=== PATIENT | male | born 1945 | race Caucasian/White ===

== ENCOUNTER 2018-12-29 16:17 | Emergency (ER) | payer OTHER ==
[2018-12-29] MEDS ORDERED: NA CHLORIDE 0.9% 1,000 ML ONE (16:55)
--- NOTE | 2018-12-29 17:48 | RAD REPORT ---
EXAM DESCRIPTION: CT - Abdomen Pelvis W Contrast - 12/29/2018 5:16 pm CLINICAL HISTORY: Abdominal pain COMPARISON: 2016 mri TECHNIQUE: Computed axial tomography of the abdomen pelvis was obtained. 100 cc Isovue-300 was admin istered intravenously. Oral contrast was not requested which limits evaluation of bowel. All CT scans are performed using dose optimization technique as appropriate and may include automated exposure control or mA/KV adjustment according to patient size. FINDINGS: Fatty liver. Chronic pneumobilia. Nodular hepatic contour indicative of chronic disease Spleen, left adrenal and kidneys unremarkable. Small right adrenal adenoma Partial pancreatectomy. Pancreas is enlarged and heterogeneous. Moderate stranding within the adjacen t fat. 22 millimeter coarse pancreatic calcification. Dilatation of the pancreatic duct. Partial gastric resection with gastro jejunostomy Short segment thickening of the wall of the descending colon likely secondary to the pancreatic infla mmation Small ventral hernia contains a portion of nondilated bowel IMPRESSION: Patient likely has acute and chronic pancreatitis. 22 millimeter coarse pancreatic calci fication likely the sequela of chronic pancreatitis.
[2018-12-29] MEDS ORDERED: HYDROMORPHONE HCL 1 MG/ML INJ ONE (17:53)
--- NOTE | 2018-12-29 19:36 | EDPHYS ---
Physician Documentation [facility] Name: Dmitri Giordano Age: 73 yrs Sex: Male : 1945 Arrival Date: 12/29/2018 Time: 16:20 Bed 7 Private MD: Derek Crespo B ED Physician Donaldo Snyder HPI: 12/29 20:17 This 73 yrs old Male presents to ER via Ambulatory with complaints of gs Abdominal Pain. 20:17 The patient presents with abdominal pain in the upper abdomen. Onset: The gs symptoms/episode began/occurred 1 week(s) ago. Associated signs and symptoms: Pertinent negatives: nausea and vomiting, fever. Modifying factors: The symptoms are alleviated by nothing, the symptoms are aggravated by food. Severity of pain: At its worst the pain was mild moderate in the emergency department the pain is unchanged. The patient has experienced similar episodes in the past, a few times. Historical: - Allergies: 16:25 No Known Allergies; aj1 - Home Meds: 16:25 Spironolactone Oral [Active]; amlodipine oral [Active]; tamsulosin oral oral [Active]; aj1 Omeprazole Oral [Active]; Calcium Carbonate Oral [Active]; Magnesium Oxide Oral [Active]; - PMHx: 16:25 Hypertension; peptic ulcer; aj1 - PSHx: 16:25 Whipple 10 years ago; aj1 - Immunization history:: Flu vaccine is up to date. - Social history:: Smoking status: Patient/guardian denies using tobacco. - Ebola Screening: : Patient denies travel to an Ebola-affected area in the 21 days before illness onset. ROS: 20:17 All other systems are negative. gs Exam: 17:38 ECG was reviewed by the Attending Physician. gs 20:17 Head/Face: Normocephalic, atraumatic. Eyes: Pupils equal round and reactive to light, gs extra-ocular motions intact. Lids and lashes normal. Conjunctiva and sclera are non-icteric and not injected. Cornea within normal limits. Periorbital areas with no swelling, redness, or edema. ENT: Nares patent. No nasal discharge, no septal abnormalities noted. Tympanic membranes are normal and external auditory canals are clear. Oropharynx with no redness, swelling, or masses, exudates, or evidence of obstruction, uvula midline. Mucous membranes moist. Neck: Trachea midline, no thyromegaly or masses palpated, and no cervical lymphadenopathy. Supple, full range of motion without nuchal rigidity, or vertebral point tenderness. No Meningismus. Chest/axilla: Normal chest wall appearance and motion. Nontender with no deformity. No lesions are appreciated. Cardiovascular: Regular rate and rhythm with a normal S1 and S2. No gallops, murmurs, or rubs. Normal PMI, no JVD. No pulse deficits. Respiratory: Lungs have equal breath sounds bilaterally, clear to auscultation and percussion. No rales, rhonchi or wheezes noted. No increased work of breathing, no retractions or nasal flaring. Back: No spinal tenderness. No costovertebral tenderness. Full range of motion. Skin: Warm, dry with normal turgor. Normal color with no rashes, no lesions, and no evidence of cellulitis. MS/ Extremity: Pulses equal, no cyanosis. Neurovascular intact. Full, normal range of motion. Neuro: Awake and alert, GCS 15, oriented to person, place, time, and situation. Cranial nerves II-XII grossly intact. Motor strength 5/5 in all extremities. Sensory grossly intact. Cerebellar exam normal. Normal gait. 20:17 Constitutional: The patient appears alert, awake. 20:17 Abdomen/GI: Palpation: mild abdominal tenderness, in the right upper quadrant, rebound tenderness, is not appreciated. Vital Signs: 16:25 BP 138 / 86; Pulse 69; Resp 18; Temp 99.1; Pulse Ox 99% on R/A; Weight 72.57 kg (R); aj1 Height 5 ft. 7 in. (170.18 cm) (R); Pain 6/10; 17:40 BP 176 / 86; Pulse 60; Resp 17; Pulse Ox 98% on R/A; tw2 18:29 BP 165 / 98; Pulse 62; Resp 17; Pulse Ox 99% on R/A; tw2 19:26 BP 175 / 82; Pulse 66; Resp 14; Temp 98.8; Pulse Ox 99% on R/A; Pain 5/10; ch 16:25 Body Mass Index 25.06 (72.57 kg, 170.18 cm) aj1 MDM: 16:48 Patient medically screened. gs 20:17 Differential diagnosis: non-specific abd pain, pancreatitis, Peptic Ulcer Disease, gs progression of tumor, hyperglycemia, pancreatic failure, paraneoplastic syndrome. Data reviewed: vital signs, nurses notes. Counseling: I had a detailed discussion with the patient and/or guardian regarding: the historical points, exam findings, and any diagnostic results supporting the discharge/admit diagnosis, the need for outpatient follow up. Physician consultation: Derek Crespo MD. Physician consultation: Gurjit Villalta MD and will see patient in office, in 2-3 days. 12/29 18:51 Order name: Lipase; Complete Time: 19:11 gs 12/29 16:49 Order name: CT Abd/Pelvis - IV Contrast Only; Complete Time: 18:04 gs 12/29 16:49 Order name: EKG; Complete Time: 16:50 gs 12/29 16:49 Order name: EKG - Nurse/Tech; Complete Time: 18:31 gs EC:38 Rate is 64 beats/min. Rhythm is regular. WV interval is normal. QRS interval is gs prolonged. T waves are Flattened. No ST changes noted. Clinical impression: NSR w/ Non-specific ST/T Changes and Abnormal EKG without significant change. Interpreted by me. Administered Medications: 17:00 Drug: NS 0.9% 1000 ml Route: IV; Rate: 1 bolus; Site: left antecubital; tw2 Point of Care Testing: Blood Glucose: 16:25 Blood Glucose: 328 mg/dL; aj1 Ranges: Critical Glucose Levels:Adult <50 mg/dl or >400 mg/dl <40 mg/dl or >180 mg/dl Disposition: 12/29/18 19:35 Discharged to Home. Impression: Upper abdominal pain, unspecified, Hyperglycemia, unspecified. - Condition is Stable. - Discharge Instructions: Abdominal Pain, Adult, Hyperglycemia. - Medication Reconciliation Form, Thank You Letter, Antibiotic Education, Prescription Opioid Use form. - Follow up: Derek Crespo MD; When: 1 - 2 days; Reason: Re-evaluation by your physician. Signatures: Dispatcher [employer] Olivia Barnes RN RN aj1 Cj Aguiar MD MD rn Krenek, Amber, RN RN ak1 Kusum Weber RN RN tw2 Donaldo Snyder MD MD Corrections: (The following items were deleted from the chart) 18:57 16:58 Creatinine for Radiology+C.LAB.BRZ ordered. EDMS EDMS 19:46 19:35 12/29/2018 19:35 Discharged to Home. Impression: Upper abdominal pain, ak1 unspecified; Hyperglycemia, unspecified. Condition is Stable. Forms are Medication Reconciliation Form, Thank You Letter, Antibiotic Education, Prescription Opioid Use. Follow up: Derek Crespo; When: 1 - 2 days; Reason: Re-evaluation by your physician. gs
--- NOTE | 2018-12-29 19:36 | ER ---
Nurse's Notes [facility] Name: Dmitri Giordano Age: 73 yrs Sex: Male : 1945 Arrival Date: 12/29/2018 Time: 16:20 Bed 7 Private MD: Derek Crespo B Diagnosis: Upper abdominal pain, unspecified;Hyperglycemia, unspecified Presentation: 12/29 16:21 Presenting complaint: Patient states: "I've had a pain in my stomach since Friday, so aj1 Dr. Crespo did some blood work this morning and he think one of the possibilities could be that my intestines are twisted so he wanted me to come get a CT scan" Patient reports RUQ and LUQ abdominal pain. Reports that on his labs his blood sugar was over 300, denies history of diabetes. Denies N/V/D. Denies fever. Transition of care: patient was not received from another setting of care. Onset of symptoms was November 2018. Risk Assessment: Do you want to hurt yourself or someone else? Patient reports no desire to harm self or others. Initial Sepsis Screen: Does the patient meet any 2 criteria? No. Patient's initial sepsis screen is negative. Does the patient have a suspected source of infection? No. Patient's initial sepsis screen is negative. Care prior to arrival: None. 16:21 Method Of Arrival: Ambulatory aj 16:21 Acuity: MARICARMEN 3 aj1 Triage Assessment: 16:25 General: Appears in no apparent distress. uncomfortable, Behavior is calm, cooperative, aj1 appropriate for age. Pain: Complains of pain in right upper quadrant and left upper quadrant Pain currently is 6 out of 10 on a pain scale. Neuro: Level of Consciousness is awake, alert, obeys commands. Cardiovascular: Patient's skin is warm and dry. Respiratory: Airway is patent Respiratory effort is even, unlabored, Respiratory pattern is regular, symmetrical. GI: Reports upper abdominal pain. Historical: - Allergies: 16:25 No Known Allergies; aj1 - Home Meds: 16:25 Spironolactone Oral [Active]; amlodipine oral [Active]; tamsulosin oral oral [Active]; aj1 Omeprazole Oral [Active]; Calcium Carbonate Oral [Active]; Magnesium Oxide Oral [Active]; - PMHx: 16:25 Hypertension; peptic ulcer; aj1 - PSHx: 16:25 Whipple 10 years ago; aj1 - Immunization history:: Flu vaccine is up to date. - Social history:: Smoking status: Patient/guardian denies using tobacco. - Ebola Screening: : Patient denies travel to an Ebola-affected area in the 21 days before illness onset. Screenin:31 Abuse screen: Denies threats or abuse. Nutritional screening: No deficits noted. tw2 Tuberculosis screening: No symptoms or risk factors identified. Fall Risk Secondary diagnosis (15 points) impaired mobility. Assessment: 16:30 General: Appears in no apparent distress. well groomed, well developed, well nourished, sg Behavior is calm, cooperative, appropriate for age. Pain: Complains of pain in abdomen Quality of pain is described as aching. Neuro: Level of Consciousness is awake, alert, obeys commands, Oriented to person, place, time, situation, Transport Pilot are equal bilaterally Moves all extremities. Speech is normal, Facial symmetry appears normal. Cardiovascular: Capillary refill is brisk in bilateral fingers Patient's skin is warm and dry. Chest pain is denied. Respiratory: Airway is patent Respiratory effort is even, unlabored, Respiratory pattern is regular, symmetrical. GI: Abdomen is round non-distended, Bowel sounds present X 4 quads. Abd is soft and non tender X 4 quads. Reports Pain is 7 out of 10 on a pain scale. : No signs and/or symptoms were reported regarding the genitourinary system. EENT: No signs and/or symptoms were reported regarding the EENT system. Derm: Skin is pink, warm \\T\\ dry. Musculoskeletal: Circulation, motion, and sensation intact. Range of motion: intact in all extremities. 16:42 Reassessment: provider Dr. Snyder at bedside at this time. tw2 17:40 Reassessment: Patient appears in no apparent distress at this time. No changes from tw2 previously documented assessment. Patient and/or family updated on plan of care and expected duration. Pain level reassessed. Patient is alert, oriented x 3, equal unlabored respirations, skin warm/dry/pink. 17:52 Reassessment: pt family at nurses station requesting updates on the POC and results, sg notified, awaiting evaluation and new orders at this time. 18:29 Reassessment: Patient appears in no apparent distress at this time. No changes from tw2 previously documented assessment. Patient and/or family updated on plan of care and expected duration. Pain level reassessed. Patient is alert, oriented x 3, equal unlabored respirations, skin warm/dry/pink. 19:00 Reassessment: Patient appears in no apparent distress at this time. Patient and/or ch family updated on plan of care and expected duration. Pain level reassessed. Patient is alert, oriented x 3, equal unlabored respirations, skin warm/dry/pink. physician in room to discuss results and plan of care with pt. 19:27 General: Appears in no apparent distress. comfortable, Behavior is calm, cooperative, ch appropriate for age. 19:27 Cardiovascular: Heart tones S1 S2 present. GI: Abdomen is round non-distended, Bowel ch sounds present X 4 quads. Abd is soft and non tender Reports lower abdominal pain, upper abdominal pain, nausea. : No signs and/or symptoms were reported regarding the genitourinary system. Vital Signs: 16:25 BP 138 / 86; Pulse 69; Resp 18; Temp 99.1; Pulse Ox 99% on R/A; Weight 72.57 kg (R); aj1 Height 5 ft. 7 in. (170.18 cm) (R); Pain 6/10; 17:40 BP 176 / 86; Pulse 60; Resp 17; Pulse Ox 98% on R/A; tw2 18:29 BP 165 / 98; Pulse 62; Resp 17; Pulse Ox 99% on R/A; tw2 19:26 BP 175 / 82; Pulse 66; Resp 14; Temp 98.8; Pulse Ox 99% on R/A; Pain 5/10; ch 16:25 Body Mass Index 25.06 (72.57 kg, 170.18 cm) aj1 ED Course: 16:20 Patient arrived in ED. aj1 16:20 Derek Crespo MD is Private Physician. aj1 16:23 Triage completed. aj1 16:30 Arm band placed on Patient placed in an exam room. aj1 16:31 Bed in low position. Call light in reach. case monitor on. Pulse ox on. NIBP on. tw2 16:33 Donaldo Snyder MD is Attending Physician. 16:42 Kusum Weber RN is Primary Nurse. tw2 17:03 Initial lab(s) drawn, by nc. Inserted saline lock: 22 gauge in left antecubital area, kj1 using aseptic technique. Blood collected. 17:15 CT completed. Patient tolerated procedure well. Patient moved to CT. Patient moved back az from CT. 17:20 CT Abd/Pelvis - IV Contrast Only In Process Unspecified. EDMS 17:39 EKG done, by tissue recovery technician. reviewed by Donaldo Snyder MD. 3 19:01 Primary Nurse role handed off by Kusum Weber RN 19:01 Bridget Perez, RN is Primary Nurse. 19:08 Report given to KlaudiaRN and BridgetRN. tw2 19:34 Derek Crespo MD is Referral Physician. gs 19:46 No provider procedures requiring assistance completed. IV discontinued, intact, ak1 bleeding controlled, No redness/swelling at site. Administered Medications: 17:00 Drug: NS 0.9% 1000 ml Route: IV; Rate: 1 bolus; Site: left antecubital; tw2 Point of Care Testing: Blood Glucose: 16:25 Blood Glucose: 328 mg/dL; aj1 Ranges: Outcome: 19:35 Discharge ordered by MD. gs 19:46 Discharged to home ambulatory, with family. ak1 19:46 Condition: stable 19:46 Discharge instructions given to patient, family, Instructed on discharge instructions, follow up and referral plans. Demonstrated understanding of instructions, follow-up care. 19:46 Patient left the ED. ak1 Signatures: Dispatcher [employer] EDMS Bridget Perez, CARMITA VIZCARRA Olivia Palencia RN RN aj1 Diogo Banuelos RN RN Klaudia Ramos RN RN ak1 Kusum Weber RN RN 2 Ibrahima Hammond Gregory, MD MD Aspen Loving sm3 Melissa Mccloud kj1 Corrections: (The following items were deleted from the chart) 18:57 17:12 Creatinine for Radiology+C.LAB.BRZ drawn and sent. EDMS 18:57 17:40 Creatinine for Radiology+C.LAB.BRZ drawn and sent. EDMS 19:26 19:00 BP 175 / 82; Pulse 66bpm; Resp 14bpm; Pulse Ox 99% RA; Temp 98.8F; Pain 5/10; ch ch 19:27 19:00 General: Appears in no apparent distress. comfortable, Behavior is calm, ch cooperative, appropriate for age, ch
[2018-12-29 20:11] VITALS: O2SAT 99
[2018-12-29 20:12] VITALS: BP 175/82; TEMP 98.8
--- NOTE | 2018-12-30 06:45 | EKG ---
Test Date: 2018-12-29 Test Time: 17:33:50 Generator Repairer: RICKY MEASUREMENT RESULTS: Intervals: Rate: 64 NC: 170 QRSD: 110 QT: 402 QTc: 414 [place]: P: 32 NC: 170 QRS: -38 T: -8 INTERPRETIVE STATEMENTS: Sinus rhythm with occasional premature ventricular complexes Left axis deviation Cannot rule out Anterior infarct, age undetermined Abnormal ECG Compared to ECG 07/24/2015 08:52:48 Ventricular premature complex(es) now present Sinus bradycardia no longer present Atrial premature complex(es) no longer present Myocardial infarct finding still present Electronically Signed On 12-30-18 06:45:16 CDT by Gustabo Ragsdale
== END 2018-12-29 19:46 | disposition home or self-care (01) ==
LOC: ER 16:17
DX: R73.9 Hyperglycemia, unspecified (principal); I10 Essential (primary) hypertension
CPT/HCPCS: 93005; 36415; 82962; 83690; 74177; 99285; Q9967; J7030; J1170